=== PATIENT | female | born 1965 ===

== ENCOUNTER 2016-06-20 08:06 | Emergency (ER) | payer BC ==
--- NOTE | 2016-06-20 09:05 | UC ---
Dizzy HPI HPI Summary: 50 yo female with a nine day hx of not feeling well Cough runny nose dizziness low energy fatigue the past two days has had nausea and three episodes of diarrhea - History Of Current Complaint Chief Complaint: UCDizziness Stated Complaint: DIZZY,DIARRHEA Time Seen by Provider: 06/20/16 08:31 Hx Obtained From: Patient Hx Last Menstrual Period: 06/17/16 Onset/Duration: Gradual Onset, Lasting Weeks Timing: Constant Severity Initially: Mild Severity Currently: Moderate Pain Intensity: 2 Pain Scale Used: 0-10 Numeric Character: Lightheaded, Weak Aggravating Factor(s): Exertion - going up stairs Associated Signs And Symptoms: Positive: Nausea, Tinnitus - chronic right tinnitus s/p concussion, had MRI < a month ago - Allergies/Home Medications Allergies/Adverse Reactions: Allergies Allergy/AdvReac Type Severity Reaction Status Date / Time Codeine Allergy Vomiting Verified 06/20/16 08:26 Home Medications: Home Medications Ibuprofen TAB* [Advil TAB*] 600 mg PO Q6H PRN 06/20/16 [History Confirmed ] Loperamide CAP* [Imodium CAP*] 0 mg PO SEE INSTRUCTIONS PRN 06/20/16 [History Confirmed 06/20/16] Norgestimate-Eth Estradiol(NF) [Ortho Tri-Cyclen (NF)] 1 tab PO DAILY 06/20/16 [ History Confirmed 06/20/16] PMH/Surg Hx/FS Hx/Imm Hx Previously Healthy: Yes - Surgical History Surgical History: Yes Surgery Procedure, Year, and Place: tonsils - Family History Known Family History: Positive: Cardiac Disease, Hypertension, Diabetes - Social History Alcohol Use: None Substance Use Type: None Smoking Status (MU): Never Smoked Tobacco Review of Systems Constitutional: Fatigue Skin: Negative Eyes: Negative ENT: Negative Respiratory: Cough Cardiovascular: Negative Gastrointestinal: Negative Genitourinary: Negative Motor: Negative Neurovascular: Negative Musculoskeletal: Negative Neurological: Negative Psychological: Negative All Other Systems Reviewed And Are Negative: Yes Physical Exam Triage Information Reviewed: Yes Appearance: Well-Appearing, No Pain Distress, Well-Nourished Vital Signs: Initial Vital Signs Temp 97.6 F 06/20/16 08:14 Pulse 84 06/20/16 08:14 Resp 24 06/20/16 08:14 BP 114/77 06/20/16 08:14 Pulse Ox 97 06/20/16 08:14 Vital Signs Reviewed: Yes Eyes: Positive: Conjunctiva Clear ENT: Positive: Hearing grossly normal, TMs normal, Other: - no sinus tenderness. Negative: Nasal congestion, Nasal drainage, Tonsillar swelling, Tonsillar exudate, Trismus, Muffled/hoarse voice Neck: Positive: Supple, Nontender, No Lymphadenopathy Respiratory: Positive: Lungs clear, Normal breath sounds, No respiratory distress, No accessory muscle use Cardiovascular: Positive: RRR, No Murmur Abdomen Description: Positive: Nontender, No Organomegaly, Soft. Negative: CVA Tenderness (R), CVA Tenderness (L) Bowel Sounds: Positive: Present Neurological: Positive: Alert, Muscle Tone Normal Psychological Exam: Normal Skin Exam: Normal Diagnostics - EKG Cardiac Rate: NL Cardiac Rhythm: Sinus: Normal Ectopy: None ST Segment: Normal Dizzy Course/Dx - Differential Dx/Diagnosis Provider Diagnoses: viral syndrome. weakness/dizziness Discharge - Discharge Plan Condition: Stable Disposition: HOME Patient Education Materials: Viral Syndrome (ED) Referrals: Jian BARRETT,Malachi Duque [Primary Care Provider] - 2 Days (recheck in 2-3 days if not better) Additional Instructions: rest fluids recheck in 2-3 days if not improved
--- NOTE | 2016-06-20 09:14 | RAD ---
Indication: Cough. No prior study is available for comparison. 2 views of the chest including dual energy PA views demonstrate no mediastinal shift. Heart is of normal size and configuration. Lung rivas are clear. IMPRESSION: No active cardiopulmonary disease is noted.
[2016-06-20 09:32] VITALS: BP 111/74
== END 2016-06-20 09:51 | disposition home or self-care (01) ==
LOC: UCCORT 08:06
DX: B34.9 Viral infection, unspecified (principal); R53.83 Other fatigue; R42 Dizziness and giddiness; Z88.5 Allergy status to narcotic agent
CPT/HCPCS: 71020; 93005; 99202; G0463

== ENCOUNTER 2017-09-28 16:30 | Emergency (ER) | payer BC ==
[2017-09-28 17:27] VITALS: BP 115/77
--- NOTE | 2017-09-28 17:32 | UC ---
Throat Pain/Nasal Dionisio HPI - History of Current Complaint Chief Complaint: UCRespiratory Stated Complaint: ST Time Seen by Provider: 09/28/17 17:10 Hx Last Menstrual Period: 09/06/17 Onset/Duration: Sudden Onset Severity: Moderate Pain Intensity: 5 Cough: None - Epiglottits Risk Factors Epiglottis Risk Factors: Negative - Allergies/Home Medications Allergies/Adverse Reactions: Allergies Allergy/AdvReac Type Severity Reaction Status Date / Time codeine Allergy Unknown Vomiting Verified 09/28/17 17:20 PMH/Surg Hx/FS Hx/Imm Hx Previously Healthy: Yes - Surgical History Surgical History: Yes Surgery Procedure, Year, and Place: tonsils. LAPROSCOPY FOR ABDOMINAL STREP INFECTON - Family History Known Family History: Positive: Cardiac Disease, Hypertension, Diabetes - Social History Alcohol Use: None Substance Use Type: None Smoking Status (MU): Never Smoked Tobacco Review of Systems Constitutional: Negative Skin: Negative Eyes: Negative ENT: Sore Throat Respiratory: Negative Cardiovascular: Negative Gastrointestinal: Negative Genitourinary: Negative Motor: Negative Neurovascular: Negative Musculoskeletal: Negative Neurological: Negative Is Patient Immunocompromised?: No All Other Systems Reviewed And Are Negative: Yes Physical Exam Triage Information Reviewed: Yes Appearance: Well-Appearing Vital Signs: Initial Vital Signs Temp 36.9 C 09/28/17 17:20 Pulse 90 09/28/17 17:20 Resp 18 09/28/17 17:20 BP 115/77 09/28/17 17:20 Pulse Ox 99 09/28/17 17:20 Vital Signs Reviewed: Yes Eye Exam: Normal Eyes: Positive: Conjunctiva Clear ENT Exam: Normal ENT: Positive: Normal ENT inspection Dental Exam: Normal Neck exam: Normal Neck: Positive: Supple Respiratory Exam: Normal Respiratory: Positive: Chest non-tender Cardiovascular Exam: Normal Abdominal Exam: Normal Throat Pain/Nasal Course/Dx - Course Course Of Treatment: pharyngitis - Differential Dx/Diagnosis Provider Diagnoses: URI Discharge - Sign-Out/Discharge Documenting (check all that apply): Patient Departure - Discharge Plan Condition: Good Disposition: HOME Patient Education Materials: Pharyngitis (ED) Referrals: Jian BARRETT,Malachi Duque [Primary Care Provider] - - Billing Disposition and Condition Condition: GOOD Disposition: Home
== END 2017-09-28 17:45 | disposition home or self-care (01) ==
LOC: UCCORT 16:30
DX: J06.9 Acute upper respiratory infection, unspecified (principal); Z88.5 Allergy status to narcotic agent
CPT/HCPCS: 87651; 99201; G0463